=== PATIENT | female | born 1980 | race Caucasian/White ===

== ENCOUNTER 2019-03-24 06:38 | Inpatient (IN) | payer MEDICAID ==
[~2019-03-24 06:38] MED LIST: Acetaminophen 500 MG Tab PO ONE; Scopolamine 1.5 MG Transdermal Patch TRDERM ONE
[2019-03-24] MEDS ORDERED: Dextrose 5%-Lactated Ringers 1,000 ML IV SCH (07:00)
[2019-03-24] MEDS ORDERED: Lidocaine 1% 2 ML ONE (08:23)
[2019-03-24] MEDS ORDERED: cefOXitin 2 GM in Sodium Chloride 0.9% 50 ML IV ONE (09:00)
[2019-03-24] MEDS ORDERED: Ketamine 500 MG/5 ML MDV IV SCH (09:15)
[2019-03-24] MEDS ORDERED: Ketamine 50 MG in Sodium Chloride 0.9% 49.5 ML IV SCH (09:15)
[2019-03-24] MEDS ORDERED: Ropivacaine 52 ML, Dexamethasone 8 MG, EPINEPHrine 0.4 MG, Sodium Chloride 0.9% 25.6 ML NERVRT SCH ×4 (09:15)
[2019-03-24] MEDS ORDERED: Labetalol 20 MG/4 ML Syringe ONE (09:36)
[2019-03-24] MEDS ORDERED: hydrOXYzine HCl 100 MG/2 ML SDV IM ONE (10:53)
[2019-03-24] MEDS ORDERED: fentaNYL 100 MCG/2 ML SDV IVPUSH ONE ×3 (10:53→11:15)
[2019-03-24] MEDS ORDERED: HYDROmorphone/Normal Saline 15 MG/30 ML PCA IV PRN (11:08)
[2019-03-24] MEDS ORDERED: Naloxone 0.4 MG/ML SDV IV PRN (11:11)
[2019-03-24] MEDS ORDERED: diphenhydrAMINE 50 MG/ML SDV IVPUSH PRN (13:53)
[2019-03-24] MEDS ORDERED: hydrOXYzine HCl 100 MG/2 ML SDV IM PRN (14:04)
[2019-03-24] MEDS ORDERED: Ondansetron 4 MG/2 ML SDV IVPUSH PRN (14:04)
[2019-03-24] MEDS ORDERED: Pantoprazole 40 MG Vial IVPUSH SCH (15:00)
[2019-03-24] MEDS: Dextrose 5%-Lactated Ringers 1,000 ML IV SCH ×2 (15:22→22:35)
[2019-03-24] MEDS: Metoclopramide 10 MG/2 ML SDV IVPUSH SCH ×2 (15:37→21:41)
[2019-03-24] MEDS: cefOXitin 2 GM in Sodium Chloride 0.9% 50 ML IV SCH ×2 (15:38→21:41)
[2019-03-24] MEDS ORDERED: rOPINIRole 0.5 MG Tab PO SCH (20:00)
[2019-03-24] MEDS ORDERED: Zolpidem 5 MG Tab PO SCH (21:00)
[2019-03-24] MEDS: Docusate Sodium 100 MG Cap PO SCH (21:40)
[2019-03-25] MEDS: Metoclopramide 10 MG/2 ML SDV IVPUSH SCH ×2 (02:17→09:15)
[2019-03-25] MEDS: cefOXitin 2 GM in Sodium Chloride 0.9% 50 ML IV SCH (02:17)
[2019-03-25] MEDS ORDERED: Acetaminophen/oxyCODONE 325-5 MG Tab PO PRN (08:03)
[2019-03-25] MEDS ORDERED: PHENTERMINE 30 MG PO SCH (09:00)
[2019-03-25] MEDS: Docusate Sodium 100 MG Cap PO SCH (09:18)
--- NOTE | 2019-03-25 09:54 | DISCH ---
ADMISSION DIAGNOSES: 1. Diaphragmatic hernia. 2. Morbid obesity. 3. Fibromyalgia. 4. Mild intermittent asthma. 5. Anxiety. 6. Dysthymia. 7. Luciano's esophagus with dysplasia. 8. Prediabetes. 9. Restless legs syndrome. 10.Hyperlipidemia. 11.Impingement syndrome of shoulder. 12.Osteoarthritis. 13.Chronic midline low back pain. 14.Kidney stones. 15.Cannabis dependence. 16.Moderate opioid dependence, sustained remission. 17.Gastroesophageal reflux disease with esophagitis. DISCHARGE DIAGNOSES: Laparoscopic Miquel fundoplication, repair of periesophageal diaphragmatic hernia with mesh, excision of mediastinal lipoma, cholecystectomy, and fine needle liver biopsy for paraesophageal diaphragmatic hernia with gastroesophageal reflux disease refractory to medical management, mediastinal lipoma, chronic cholecystitis, marked hepatomegaly, and mild portal hypertension. Date of surgery: 03/24/2019. Surgeon: Jb Nielson MD. HISTORY: Penny Shay is a 39-year-old female with persistent gastroesophageal reflux disease refractory to medical management and cholecystitis. After preoperative evaluation and discussion of possible risks and possible complications, she wished to proceed with surgical procedure. HOSPITAL COURSE: Penny had her surgery on 03/24/2019. On postoperative day #1, her pain was well managed, she received dietary instruction, vital signs stable, activity was good, and she wishes to be discharged to home. PHYSICAL EXAMINATION: GENERAL: Penny Shay is a 39-year-old female, alert, orientated. VITAL SIGNS: Height is 5 feet 5 inches, weight is 233 pounds, BMI is 38.8. TPR 97.4, 72, 18, blood pressure 105/60. HEENT: Negative. NECK: Supple. HEART: Regular rate and rhythm. LUNGS: Clear. ABDOMEN: Trocar incisions healing well. Sutures intact. Abdominal binder currently is off, it has been on. EXTREMITIES: Without peripheral edema. DISPOSITION: Discharged to home. CONDITION: Stable and improving. FOLLOWUP: Followup appointment on 04/01/2019 at 10 a.m. with Jb Nielson MD. HOME MEDICATIONS: 1. Percocet 5/325 mg one tablet every 4 hours p.r.n. pain #42. 2. Colace 100 mg oral twice daily #60. 3. She is to resume home medication of Voltaren 1 applicator topical four times a day. 4. Protonix 40 mg oral daily. 5. MiraLax 17 mg oral daily. 6. Zantac/ranitidine 300 mg oral daily. 7. Sonata/Zaleplon 5 mg oral at bedtime p.r.n. sleep. 8. Vistaril 25 mg every 8 hours p.r.n. anxiety. 9. Ropinirole 0.25 mg oral at bedtime p.r.n. restless legs. Discontinue taking ibuprofen and phentermine. DIET: Full liquid diet. ACTIVITY: No lifting greater than 10 pounds for 2 weeks. Other activity, walk at least 6 times daily. Driving: Do not drive for 1 week and while on pain medication. DISCHARGE INSTRUCTIONS: Notify provider if any fever, increased pain, nausea, or vomiting. Keep site clean and dry. Wear abdominal binder for 2 weeks and then as tolerated. Use incentive spirometer 10 times every hour while awake.
--- NOTE | 2019-03-25 15:23 | CRLUS ---
Final Report: INDICATION: Nausea and vomiting TECHNIQUE: Ultrasound abdomen limited. Sonographic images of the right upper quadrant were obtained using jimenez-scale and color Doppler images. COMPARISON: CT scan abdomen pelvis 09/08/2018 FINDINGS: Liver: Normal in size with diffuse fatty infiltration. Focal fatty sparing near the gallbladder fossa. No masses. No intrahepatic biliary dilatation. Gallbladder: No stones or sludge. Normal wall thickness. No pericholecystic fluid. Common bile duct: 4 mm. Pancreas: Normal. Right kidney: 10.6 cm. Normal echotexture and cortex. No masses, stones, or hydronephrosis. Vasculature: Proximal abdominal aorta and IVC are normal. IMPRESSION: Diffuse fatty infiltration of liver with focal fatty sparing in the gallbladder fossa. Normal gallbladder and common bile duct. Dictated by Miquel Neff MD @ 03/24/2019 12:38:06 PM Dictated by: Miquel Neff MD @ 03/24/2019 12:38:15 (Electronic Signature) MTDD
--- NOTE | 2019-03-31 11:30 | OR ---
DATE OF PROCEDURE: 03/24/2019 SURGEON: Jb Nielson MD PREOPERATIVE DIAGNOSIS: Gastroesophageal reflux disease refractory to medical management. POSTOPERATIVE DIAGNOSES: 1. Gastroesophageal reflux disease refractory to medical management associated with large paraesophageal diaphragmatic hernia. 2. Mediastinal lipoma. 3. Chronic cholecystitis. 4. Marked hepatomegaly with mild portal hypertension. OPERATIVE PROCEDURES: 1. Laparoscopic Miquel fundoplication with repair of paraesophageal diaphragmatic hernia with mesh (68752). 2. Excision of mediastinal lipoma (00165). 3. Cholecystectomy (15698). 4. Woo-Cut needle liver biopsy (86604). ANESTHESIA: General. FINISHED METAL REPAIRER: RAYSA Seay. INDICATIONS FOR PROCEDURE: This is a 39-year-old presenting with gastroesophageal reflux disease that has been refractory to medical management. Plan is to proceed with laparoscopic or, if necessary, open Miquel fundoplication. Potential risks of the procedure including bleeding, infection, injury to underlying viscera, problems with fundoplication such as gas-bloat syndrome, disorders of gastric emptying rate, incomplete relief of reflux symptoms, and persistent dysphagia were gone over. Additionally, the patient has symptoms that are quite suggestive of biliary colic. She did have a CCK stimulated HIDA scan done in [place], which showed a normal ejection fraction, but on the close review, the CCK injection caused significant reproduction of her symptoms, and the plan will be to proceed with a cholecystectomy if the gallbladder looks abnormal grossly during the initial examination. Potential risks of that procedure including bleeding, infection, possible persistence of those symptoms, injury to the common bile duct or adjacent viscera were likewise gone over, and the patient wishes to proceed. DETAILS OF PROCEDURE: The patient was taken to the operating room and placed in a supine position. After general endotracheal anesthesia was induced, she was converted to a lithotomy position and the abdomen prepped and draped. At 15 cm inferior and 5 cm left of xiphoid process, transverse incision was made and the peritoneal cavity entered under direct vision with an Optiview trocar inflated to 15 mmHg pressure of CO2. Laparoscope was then reinserted. No underlying trocar insertion site injuries were seen. Following this, bilateral transversus abdominis plane blocks were placed, and eventually 5 additional trocars were placed across the upper and mid abdomen. The liver was noted to be markedly enlarged and fatty infiltrated. There also appeared to be mild engorgement of the mesenteric veins, suggestive of some degree of portal hypertension. Woo-Cut needle biopsy was obtained from left lobe of the liver. Minimal bleeding from the biopsy site was controlled with electrocautery. On visualization of the gallbladder, it was noted to be jimenez and somewhat thick-walled in appearance, rather than a normal robbin's egg blue, suggestive of some fairly obvious development of chronic cholecystitis. Given this, we decided to proceed with cholecystectomy at the conclusion of the diaphragmatic hernia repair. Following this, the liver was retracted anteriorly. The patient's diaphragmatic hernia has significant paraesophageal component with prolapse of a portion of the gastric fundus and a tongue of omentum in a plane anterior to the course of the esophagus. This was reduced, and the peritoneum overlying incised and reflected downward. During the course of the dissection, mediastinal lipoma was encountered, and this was excised as well to facilitate more adequate repair. The crura were dissected from the esophagus on each side, and a retrocrural tunnel was then constructed. The soft tissue attachments to the esophagus were then gradually dissected free, such that an intraabdominal esophageal length of around 5 cm was established. Crural repair was then accomplished posteriorly with 0 Ethibond sutures, reinforced with PTFE pledgets. Because of the thinness of the musculature and wideness of the crural defect initially encountered, a Phasix mesh was placed posterior to the esophagus and along the sides of the esophagus and attached to the adjacent crura with some titanium tacking screws. Care was taken to maintain the polypropylene side of the mesh up against the crural side of the mesh. At this point, the short gastric vessels were taken down, beginning with lowest short gastric vessels and then up to and including the highest and posterior short gastric vessels. The fundus was adequately mobile and retrieved through the retroesophageal window. Anesthesia then passed a guidewire orally through the esophagus into the stomach, and over this a 54-Bhutanese dilator was placed. A three-stitch 2 cm fundoplication was then accomplished with 0 Ethibond sutures reinforced with PTFE pledgets, with each of the bites including underlying esophagus, affixed in position. Two additional sutures between the fundoplication and the diaphragm were then placed with the same stitch-pledget combination to help maintain it in an adequate location, and at that point, the dilator was removed, along with the wire, and fundoplication was judged to be satisfactorily floppy. Attention was then taken to the cholecystectomy. Gallbladder was retracted anteriorly and laterally. Dissection began along the gallbladder neck, continued around the gallbladder neck/cystic duct junction. Once that area was well identified, as well as the adjacent cystic artery, both structures were clipped 3 times proximally, once distally, and divided. The gallbladder was then dissected off the gallbladder bed using Harmonic scalpel to the level of the upper midline trocar site. The gallbladder did contain some fine sludge and tiny stones within it and had an obvious element of cholesterolosis in the gallbladder mucosa. The area of dissection was inspected. No bleeding or bile leaks were seen. At that point, a Wai-Kelly drain was placed through the left lateral trocar site and positioned adjacent to the gallbladder bed, and the trocars were removed and peritoneal cavity deflated. The fascia at the 12 mm site was closed with 0 Vicryl stitch and the skin with 4- 0 Vicryl skin stitch. Dressing was applied. The patient was taken to the recovery room in satisfactory condition. There were no evident complications. Jb Nielson MD /[id number]
== END 2019-03-25 11:05 | disposition home or self-care (01) | DRG 327 ==
LOC: JP.SDS 06:38 → JP.SDSSCHI 06:38 → EDSTATUS 09:30 → JP.2SS 10:40
PROVIDERS: ADMIT Surgery; ATTEND Surgery
PROC: 0DV44ZZ Restriction of Esophagogastric Junction, Percutaneous Endoscopic Approach (ICD-10-PCS; principal; 2019-03-24)
PROC: 0BUT4JZ Supplement Diaphragm with Synthetic Substitute, Percutaneous Endoscopic Approach (ICD-10-PCS; 2019-03-24)
PROC: 0WBC4ZX Excision of Mediastinum, Percutaneous Endoscopic Approach, Diagnostic (ICD-10-PCS; 2019-03-24)
PROC: 0FB24ZX Excision of Left Lobe Liver, Percutaneous Endoscopic Approach, Diagnostic (ICD-10-PCS; 2019-03-24)
PROC: 0FT44ZZ Resection of Gallbladder, Percutaneous Endoscopic Approach (ICD-10-PCS; 2019-03-24)
DX: K21.9 Gastro-esophageal reflux disease without esophagitis (principal); K76.6 Portal hypertension; K44.9 Diaphragmatic hernia without obstruction or gangrene; R16.0 Hepatomegaly, not elsewhere classified; K81.1 Chronic cholecystitis; D17.4 Benign lipomatous neoplasm of intrathoracic organs; K76.0 Fatty (change of) liver, not elsewhere classified; E66.01 Morbid (severe) obesity due to excess calories; Z68.38 Body mass index [BMI] 38.0-38.9, adult; M79.7 Fibromyalgia; J45.20 Mild intermittent asthma, uncomplicated; F41.9 Anxiety disorder, unspecified; F34.1 Dysthymic disorder; K22.719 Barrett's esophagus with dysplasia, unspecified; R73.03 Prediabetes; G25.81 Restless legs syndrome; E78.5 Hyperlipidemia, unspecified; M75.40 Impingement syndrome of unspecified shoulder; M19.90 Unspecified osteoarthritis, unspecified site; M54.5 Low back pain; G89.29 Other chronic pain; F12.20 Cannabis dependence, uncomplicated; F11.21 Opioid dependence, in remission; Z88.1 Allergy status to other antibiotic agents; Z91.040 Latex allergy status
CPT/HCPCS: 36415; 76705; 80053; 83735; 84100; 85025; 88304; 88307; 88313; 94762; A9270-GY; C1781; C9113; J0171; J0694; J1100; J1200; J2001; J2765; J2795; J3010; J3410; J3490; J7042; J7050

== ENCOUNTER 2019-06-13 13:17 | Emergency (ER) | payer MEDICAID ==
--- NOTE | 2019-06-13 14:13 | EDM.PDOC ---
ED HPI GENERAL MEDICAL PROBLEM - General Chief Complaint: Lower Extremity Injury/Pain Stated Complaint: RIGHT ANKLE INJURY FROM FEW DAYS AGO Time Seen by Provider: 06/13/19 13:42 Source of Information: Reports: Patient History Limitations: Reports: No Limitations - History of Present Illness INITIAL COMMENTS - FREE TEXT/NARRATIVE: she states she was trying to do the [facility]; and fell Since has been walking on it and has pain in the right ankle. Able to bear weight; pain does shoot down the toes. Using ibuprofen and tylenol. Onset: Today Quality: Reports: Ache Severity: Moderate Improves with: Reports: None Worsens with: Reports: None - Related Data Allergies Allergy/AdvReac Type Severity Reaction Status Date / Time erythromycin base Allergy Hives Verified 06/13/19 13:48 latex Allergy Blisters Verified 06/13/19 13:48 Home Meds: Home Meds Diclofenac Sodium [Voltaren] 1 applic TP QID 10/27/18 [History] rOPINIRole [Requip] 0.25 mg PO BEDTIME PRN 10/27/18 [History] Zaleplon [Sonata] 5 mg PO BEDTIME PRN 03/20/19 [History] hydrOXYzine pamoate [Vistaril] 25 mg PO Q8H PRN 03/20/19 [History] Past Medical History HEENT History: Reports: Impaired Vision Respiratory History: Reports: Asthma Gastrointestinal History: Reports: GERD, Hiatal Hernia Genitourinary History: Reports: Renal Calculus Other Genitourinary History: stones also in salivary ducts SHIP'S PILOT History: Reports: Endometriosis, , Spontaneous Musculoskeletal History: Reports: Arthritis, Fibromyalgia Psychiatric History: Reports: Anxiety, Depression, PTSD Endocrine/Metabolic History: Reports: Obesity/BMI 30+ Dermatologic History: Reports: None - Infectious Disease History Infectious Disease History: Reports: Chicken Pox - Past Surgical History HEENT Surgical History: Reports: None Respiratory Surgical History: Reports: None GI Surgical History: Reports: EGD Female Surgical History: Reports: None, Hysterectomy, Tubal Ligation Endocrine Surgical History: Reports: None Musculoskeletal Surgical History: Reports: Shoulder Surgery Dermatological Surgical History: Reports: Skin Biopsy Social & Family History - Family History Family Medical History: Noncontributory - Tobacco Use Smoking Status *Q: Current Every Day Smoker Years of Tobacco use: 20 Packs/Tins Daily: 1 - Caffeine Use Caffeine Use: Reports: Tea Review of Systems - Review of Systems Review Of Systems: ROS reveals no pertinent complaints other than HPI. ED EXAM, GENERAL - Physical Exam Exam: See Below Exam Limited By: No Limitations General Appearance: Alert, WD/WN, No Apparent Distress Neck: Normal Inspection, Full Range of Motion Respiratory/Chest: No Respiratory Distress Peripheral Pulses: 4+: Posterior Tibial (L), Posterior Tibial (R), Dorsalis Pedis (L), Dorsalis Pedis (R) Extremities: Normal Inspection, Other (right ankle pain, normal cms, dp and pt pulses palpable, ) Neurological: Alert, Oriented, Normal Cognition Psychiatric: Normal Affect, Normal Mood Skin Exam: Warm, Dry, Intact Course - Vital Signs Last Recorded V/S: Last Vital Signs Temp 98.3 F 06/13/19 13:53 Pulse 98 06/13/19 13:53 Resp 16 06/13/19 13:53 BP 127/87 06/13/19 13:53 Pulse Ox 96 06/13/19 13:53 - Re-Assessments/Exams Free Text/Narrative Re-Assessment/Exam: 06/13/19 15:25 reviewed xray with patient. Neg for fx or dislocation. Air splint applied. Departure - Departure Time of Disposition: 14:19 Disposition: Home, Self-Care 01 Condition: Good Clinical Impression: Right ankle sprain - Discharge Information *PRESCRIPTION DRUG MONITORING PROGRAM REVIEWED*: Yes *COPY OF PRESCRIPTION DRUG MONITORING REPORT IN PATIENT KINGA: No Instructions: Ankle Sprain, How to Use a Stirrup Ankle Brace Referrals: Aniya Lainez MD [Primary Care Provider] - Forms: ED Department Discharge Additional Instructions: Rest, ice, elevate and support. The air stirrup should be warm at all times except for bed unless it provides you with comfort and when you shower. Ibuprofen 800 mg every 8 hours Tylenol for pain Will rx [place] for pain; this is a narcotic; do not drink or drive with it. Do not take with Tylenol. You will need to make an appointment to see your primary care for further evaluation. - Problem List & Annotations (1) Right ankle sprain SNOMED Code(s): 96530284 Code(s): S93.401A - SPRAIN OF UNSPECIFIED LIGAMENT OF RIGHT ANKLE, INIT ENCNTR Status: Acute Priority: Low - Problem List Review Problem List Initiated/Reviewed/Updated: Yes
--- NOTE | 2019-06-13 15:18 | CRLCR ---
HISTORY: Pain after twisting injury. FINDINGS: Three views of the right ankle are provided. There are no findings for fracture or dislocation. The ankle joint space is normally maintained. Mild posterior and plantar spurring of the calcaneus is noted. Dictated by Deshaun Kirkland MD @ Jun 13 2019 3:15PM Signed by Dr. Deshaun Kirkland @ Jun 13 2019 3:16PM
== END 2019-06-13 14:42 | disposition home or self-care (01) ==
LOC: JP.ED 13:17
DX: S93.401A Sprain of unspecified ligament of right ankle, initial encounter (principal); M19.90 Unspecified osteoarthritis, unspecified site; E66.9 Obesity, unspecified; F17.210 Nicotine dependence, cigarettes, uncomplicated; Z88.1 Allergy status to other antibiotic agents; Z91.040 Latex allergy status; Z90.710 Acquired absence of both cervix and uterus; Z98.51 Tubal ligation status; W19.XXXA Unspecified fall, initial encounter
CPT/HCPCS: 73610-RT; 99283-25